=== PATIENT | female | born 1960 | race Caucasian/White ===

== ENCOUNTER 2022-08-03 10:19 | Emergency (ER) | payer BC, OTHER ==
[2022-08-03] VITALS (10 sets, daily range): BP systolic 116–168; BP diastolic 50–86
[~2022-08-03] VITALS: Ht 170.2 cm; Wt 77.3 kg
[2022-08-03] MEDS ORDERED: LISINOPRIL5 MG PO (10:38)
[2022-08-03] MEDS ORDERED: NORVASC5 M1 PO (10:38)
[2022-08-03] MEDS ORDERED: PAROXETINE20 MG PO (10:39)
[2022-08-03] MEDS ORDERED: LORAZEPAM0.5 MG PO (10:39)
[2022-08-03 10:53] LABS: BASO% 0.1 % (0-3); HEMOGLOBIN 14.4 g/dl (12.0-16.0); IMMATURE GRANULOCYTES 0.4 % (0.0-5.0); LYMPH% 6.9 % (15-41); MEAN CELL VOLUME 94.5 fL CALC (80.0-100.0); MEAN CORPUSCULAR HGB 31.6 pG CALC (26.0-32.0); MEAN CORPUSCULAR HGB CONC 33.5 g/dL CAL (32.0-36.0); MONO% 2.7 % (2-13); NEUT# 7.52 thou/uL (2.00-7.15); NEUT% 89.9 % (42-76); RED BLOOD COUNT 4.55 mill/uL (4.20-5.60); RED CELL DISTRI WIDTH 12.4 % (11.5-15.5)
[2022-08-03 11:04] LABS: ALBUMIN 4.9 g/dL (3.2-5.0); ALKALINE PHOSPHATASE 107 u/l (38-126); ANION GAP 16 (6-22 (CALC)); BILIRUBIN, TOTAL 0.5 mg/dL (0.0-1.4); BUN 14 mg/dL (7-17); BUN/CREATININE RATIO 16 (12-20 (CALC)); CARBON DIOXIDE 25 mmol/l (22-30); CHLORIDE 102 mmol/l (95-108); CREATININE 0.9 mg/dL (0.5-1.0); GFR FOR AFR.AMER. > 60 ML/MIN (>=60 (CALC)); GFR OTHER RACES > 60 ML/MIN (>=60 (CALC)); LIPASE 92 u/l (23-300); POTASSIUM 3.4 mmol/l (3.5-5.1); SGOT/AST 27 u/l (14-36); SODIUM 140 mmol/l (137-146); TOTAL PROTEIN 8.5 g/dL (6.3-8.2)
[2022-08-03 13:03] LABS: URINE BILIRUBIN - DIPSTICK NEGATIVE (NEGATIVE); URINE BLOOD DIPSTICK MODERATE (NEGATIVE); URINE COLOR YELLOW; URINE GLUCOSE - DIPSTICK NEGATIVE (NEGATIVE); URINE KETONE >=80 mg/dL (NEGATIVE); URINE LEUK ESTERASE NEGATIVE (NEGATIVE); URINE PROTEIN - DIPSTICK TRACE mg/dL (NEG-TRACE); URINE SPECIFIC GRAVITY 1.025; URINE UROBILINOGEN - DIPSTICK 0.2 E.U./dL (0.2)
[2022-08-03 13:05] LABS: URINE NITRITE - DIPSTICK NEGATIVE (Negative)
[2022-08-03] MEDS ORDERED: PROMETHAZINE HY25 M1 PO (13:17)
[2022-08-03] MEDS ORDERED: CEPHALEXIN500 MG PO (13:17)
== END 2022-08-03 14:05 | disposition home or self-care (01) | DRG 696 ==
LOC: ED 10:19
PROVIDERS: Family Medicine
DX: R31.9 Hematuria, unspecified (principal); M54.50 Low back pain, unspecified

== ENCOUNTER 2022-08-06 13:17 | Emergency (ER) | payer BC, OTHER ==
[~2022-08-06] VITALS: Ht 170.2 cm; Wt 77.0 kg
[~2022-08-06 13:17] MED LIST: CEPHALEXIN500 MG PO; LISINOPRIL5 MG PO; LORAZEPAM0.5 MG PO; NORVASC5 M1 PO; PAROXETINE20 MG PO; PROMETHAZINE HY25 M1 PO
[2022-08-06] MEDS ORDERED: IBUPROFEN600 MG PO (14:26)
[2022-08-06] MEDS ORDERED: FLEXERIL5 M1 PO (14:29)
[2022-08-06 14:50] VITALS: BP 130/66
== END 2022-08-06 14:55 | disposition home or self-care (01) | DRG 552 ==
LOC: ED 13:17
DX: M54.50 Low back pain, unspecified (principal)

== ENCOUNTER 2024-08-16 07:45 | Day surgery (SDC) | payer BC, OTHER ==
[~2024-08-16] VITALS: Ht 170.2 cm; Wt 78.0 kg
[~2024-08-16 07:45] MED LIST changes: +FLEXERIL5 M1 PO; +IBUPROFEN600 MG PO; +ROSUVASTATIN CA20 MG PO; +WELLBUTRIN150 M1 PO
[2024-08-16] MEDS ORDERED: LACTATED RINGER'S 1,000 ML IV ONE (07:49)
[2024-08-16] MEDS ORDERED: GLYCOPYRROLATE 0.2 MG/ML IV ONE (10:04)
[2024-08-16] MEDS ORDERED: LIDOCAINE HCL 2% 2ML SDV IV ONE (10:04)
[2024-08-16] MEDS ORDERED: PROPOFOL 200 MG/20 ML VIAL IV ONE (10:04)
[2024-08-16 10:07] VITALS: BP 122/64
== END 2024-08-16 10:20 | disposition home or self-care (01) | DRG 951 ==
LOC: ENDO 07:45 → ORM 10:15 → ENDO 10:15 → ORM 11:00
PROVIDERS: ATTEND Surgery
PROC: 0DBK8ZX Excision of Ascending Colon, Via Natural or Artificial Opening Endoscopic, Diagnostic (ICD-10-PCS; principal; 2024-08-16)
DX: Z12.11 Encounter for screening for malignant neoplasm of colon (principal); D12.2 Benign neoplasm of ascending colon; K64.4 Residual hemorrhoidal skin tags; K64.8 Other hemorrhoids; I10 Essential (primary) hypertension; F41.9 Anxiety disorder, unspecified; E78.00 Pure hypercholesterolemia, unspecified; Z80.0 Family history of malignant neoplasm of digestive organs
CPT/HCPCS: J1596

== ENCOUNTER 2024-09-03 16:55 | Emergency (ER) | payer BC, OTHER ==
[2024-09-03] VITALS (10 sets, daily range): BP systolic 112–147; BP diastolic 57–102
[~2024-09-03] VITALS: Ht 170.2 cm; Wt 78.0 kg
[2024-09-03] MEDS ORDERED: Iopamidol 370 (Isovue) 76% 100 ML SDV IV ONE ×2 (17:20→17:25)
[2024-09-03 17:58] LABS: ALBUMIN 4.7 g/dL (3.2-5.0); BILIRUBIN, TOTAL 0.6 mg/dL (0.02-1.3); CREATININE 1.1 mg/dL (0.5-1.0); TOTAL PROTEIN 7.8 g/dL (6.3-8.2)
[2024-09-03 17:59] LABS: POTASSIUM 4.4 mmol/l (3.5-5.1)
[2024-09-03 18:26] LABS: BASO% 0.4 % (0-3); HEMATOCRIT 42.4 % (37.0-47.0); HEMOGLOBIN 14.1 g/dl (12.0-16.0); IMMATURE GRANULOCYTES 0.1 % (0.0-5.0); LYMPH% 36.3 % (15-41); MEAN CELL VOLUME 94.4 fL CALC (80.0-100.0); MEAN CORPUSCULAR HGB 31.4 pG CALC (26.0-32.0); MEAN CORPUSCULAR HGB CONC 33.3 g/dL CAL (32.0-36.0); MONO% 7.9 % (2-13); NEUT# 3.93 thou/uL (2.00-7.15); NEUT% 54.3 % (42-76); RED BLOOD COUNT 4.49 mill/uL (4.20-5.60); RED CELL DISTRI WIDTH 11.8 % (11.5-15.5)
== END 2024-09-03 19:50 | disposition left against medical advice (07) | DRG 125 ==
LOC: ED 16:55
PROVIDERS: Emergency Medicine
DX: H57.11 Ocular pain, right eye (principal); H53.8 Other visual disturbances; I10 Essential (primary) hypertension; F41.9 Anxiety disorder, unspecified; E78.00 Pure hypercholesterolemia, unspecified; Z53.29 Procedure and treatment not carried out because of patient's decision for other reasons